=== PATIENT | female | born 1975 | race Caucasian/White ===

== ENCOUNTER 2016-08-01 15:45 | Emergency (ER) | payer MEDICAID, OTHER ==
[~2016-08-01] VITALS: Ht 167.6 cm; Wt 92.9 kg
[~2016-08-01 15:45] MED LIST: ALBU2.5V2 AEROSOL; FLUO40CA40 PO; PREN-92 PO
[2016-08-01 15:49] VITALS: Ht 167.6 cm; Wt 92.9 kg
--- OUTSIDE RECORDS SUMMARY | 2016-08-01 15:50 | XMS REPORT | Referral Summary ---
Author Author [facility] Organization [facility] Address Unknown Phone Unavailable Care Team Providers Care General Duty Nurse Name Role Phone No PCP, States Primary Care Physician [phone] Encounter VC Date(s): 05/28/15 - 05/28/15 [facility] [address] [place] [id number] Discharge Disposition: 01-Home or Self Care Attending Physician: Manuelito Nelson APRN Admitting Physician: Manuelito Nelson APRN Vital Signs Most recent to 1 oldest [Reference Range]: Temperature Tympanic 36.5 degC [36.6-38.1 degC] *LOW* (05/28/15 9:43 AM) Peripheral Pulse 96 bpm Rate [60-100 bpm] (05/28/15 9:43 AM) Respiratory Rate 18 br/min [14-20 br/min] (05/28/15 9:43 AM) Blood Pressure 112/74 mmHg [90-140/60-90 mmHg] (05/28/15 9:43 AM) SpO2 97 % (05/28/15 9:43 AM) Problem List Condition Effective Dates Status Health Status Informant Asthma(Confirmed) Active Macular Active degeneration(Confirm ed) Depression(Confirmed Active ) Irritable bowel Active syndrome(Confirmed) Migraine Active headaches(Confirmed) Obesity(Confirmed) Active patient Allergies, Adverse Reactions, Alerts No Known Medication Allergies Medications ibuprofen 200 mg oral tablet mg tabs, Oral, q6hr, 0 Refill(s) Start Date: 09/04/14 Status: Ordered Results No data available for this section Immunizations Vaccine Date Refusal Reason hepatitis A-hepatitis B vaccine 06/25/06 hepatitis A-hepatitis B vaccine 01/22/06 Procedures Procedure Date Related Diagnosis Body Site Lesion Excision Right Upper Eyelid 05/14/09 Cholecystectomy Social History Social History Type Response Smoking Status Never smoker Assessment and Plan No data available for this section
--- OUTSIDE RECORDS SUMMARY | 2016-08-01 15:50 | XMS REPORT | Referral Summary ---
Author Author [facility] Organization [facility] Address Unknown Phone Unavailable Care Team Providers Care Director Of Pupil Personnel Program Name Role Phone Dina Grier Primary Care Physician [phone] Encounter VC Date(s): 09/04/14 - 09/04/14 [facility] [address] [place] [id number]- Discharge Diagnosis: Well female exam with routine gynecological exam Discharge Diagnosis: Plantar fasciitis Discharge Disposition: 01-Home or Self Care Attending Physician: Lauren Smallwood APRN Admitting Physician: Lauren Smallwood APRN Vital Signs Most recent to 1 oldest [Reference Range]: Temperature Tympanic 37.1 degC [36.6-38.1 degC] (09/04/14 1:31 PM) Peripheral Pulse 88 bpm Rate [60-100 bpm] (09/04/14 1:31 PM) Respiratory Rate 16 br/min [14-20 br/min] (09/04/14 1:31 PM) Blood Pressure 110/74 mmHg [90-140/60-90 mmHg] (09/04/14 1:31 PM) Problem List Condition Effective Dates Status Health [...] Smoking Status Never smoker Assessment and Plan Extracted from: Title: Ambulatory Patient Education Author: Lauren Smallwood APRN Date : 09/04/14 Family Medicine Health Maintenance, Female A healthy lifestyle and preventative care can promote health and wellness. Maintain regular health, dental, and eye exams. Eat a healthy diet. Foods like vegetables, fruits, whole grains, low-fat dairy products, and lean protein foods contain the nutrients you need without too many calories. Decrease your intake of foods high in solid fats, added sugars, and salt. Get information about a proper diet from your caregiver, if necessary. Regular physical exercise is one of the most important things you can do for your health. Most adults should get at least 150 minutes of moderate- intensity exercise (any activity that increases your heart rate and causes you to sweat) each week. In addition, most adults need muscle-strengthening exercises on 2 or more days a week. Maintain a healthy weight. The body mass index (BMI) is a screening tool to identify possible weight problems. It provides an estimate of body fat based on height and weight. Your caregiver can help determine your BMI, and can help you achieve or maintain a healthy weight. For adults 20 years and older: A BMI below 18.5 is considered underweight. A BMI of 18.5 to 24.9 is normal. A BMI of 25 to 29.9 is considered overweight. A BMI of 30 and above is considered obese. Maintain normal blood lipids and cholesterol by exercising and minimizing your intake of saturated fat. Eat a balanced diet with plenty of fruits and vegetables. Blood tests for lipids and cholesterol should begin at age 20 and be repeated every 5 years. If your lipid or cholesterol levels are high, you are over 50, or you are a high risk for heart disease, you may need your cholesterol levels checked more frequently.Ongoing high lipid and cholesterol levels should be treated with medicines if diet and exercise are not effective. If you smoke, find out from your caregiver how to quit. If you do not use tobacco, do not start. Lung cancer screening is recommended for adults aged 5580 years who are at high risk for developing lung cancer because of a history of smoking. Yearly low-dose computed tomography (CT) is recommended for people who have at least a 71-alpk-smhs history of smoking and are a current smoker or have quit within the past 15 years. A pack year of smoking is smoking an average of 1 pack of cigarettes a day for 1 year (for example: 1 pack a day for 30 years or 2 packs a day for 15 years). Yearly screening should continue until the smoker has stopped smoking for at least 15 years. Yearly screening should also be stopped for people who develop a health problem that would prevent them from having lung cancer treatment. If you are , do not drink alcohol. If you are , be very cautious about drinking alcohol. If you are not and choose to drink alcohol, do not exceed 1 drink per day. One drink is considered to be 12 ounces (355 mL) of beer, 5 ounces (148 mL) of wine, or 1.5 ounces (44 mL) of liquor. Avoid use of street drugs. Do not share needles with anyone. Ask for help if you need support or instructions about stopping the use of drugs. High blood pressure causes heart disease and increases the risk of stroke. Blood pressure should be checked at least every 1 to 2 years. Ongoing high blood pressure should be treated with medicines, if weight loss and exercise are not effective. If you are 55 to 79 years old, ask your caregiver if you should take aspirin to prevent strokes. Diabetes screening involves taking a blood sample to check your fasting blood sugar level. This should be done once every 3 years, after age 45, if you are within normal weight and without risk factors for diabetes. Testing should be considered at a younger age or be carried out more frequently if you are overweight and have at least 1 risk factor for diabetes. Breast cancer screening is essential preventative care for women. You should practice "breast self-awareness." This means understanding the normal appearance and feel of your breasts and may include breast self-examination. Any changes detected, no matter how small, should be reported to a caregiver. Women in their 20s and 30s should have a clinical breast exam (CBE) by a caregiver as part of a regular health exam every 1 to 3 years. After age 40, women should have a CBE every year. Starting at age 40, women should consider having a mammogram (breast X-ray ) every year. Women who have a family history of breast cancer should talk to their caregiver about genetic screening. Women at a high risk of breast cancer should talk to their caregiver about having an MRI and a mammogram every year. Breast cancer gene (BRCA )-related cancer risk assessment is recommended for women who have family members with BRCA -related cancers. BRCA -related cancers include breast, ovarian, tubal, and peritoneal cancers. Having family members with these cancers may be associated with an increased risk for harmful changes (mutations ) in the breast cancer genes BRCA1 and BRCA2 . Results of the assessment will determine the need for genetic counseling and BRCA1 and BRCA2 testing. The Pap test is a screening test for cervical cancer. Women should have a Pap test starting at age 21. Between ages 21 and 29, Pap tests should be repeated every 2 years. Beginning at age 30, you should have a Pap test every 3 years as long as the past 3 Pap tests have been normal. If you had a hysterectomy for a problem that was not cancer or a condition that could lead to cancer, then you no longer need Pap tests. If you are between ages 65 and 70 , and you have had normal Pap tests going back 10 years, you no longer need Pap tests. If you have had past treatment for cervical cancer or a condition that could lead to cancer, you need Pap tests and screening for cancer for at least 20 years after your treatment. If Pap tests have been discontinued, risk factors (such as a new sexual partner) need to be reassessed to determine if screening should be resumed. Some women have medical problems that increase the chance of getting cervical cancer. In these cases, your caregiver may recommend more frequent screening and Pap tests. The human papillomavirus (HPV) test is an additional test that may be used for cervical cancer screening. The HPV test looks for the virus that can cause the cell changes on the cervix. The cells collected during the Pap test can be tested for HPV. The HPV test could be used to screen women aged 30 years and older, and should be used in women of any age who have unclear Pap test results. After the age of 30, women should have HPV testing at the same frequency as a Pap test. Colorectal cancer can be detected and often prevented. Most routine colorectal cancer screening begins at the age of 50 and continues through age 75. However, your caregiver may recommend screening at an earlier age if you have risk factors for colon cancer. On a yearly basis, your caregiver may provide home test kits to check for hidden blood in the stool. Use of a small camera at the end of a tube, to directly examine the colon (sigmoidoscopy or colonoscopy ), can detect the earliest forms of colorectal cancer. Talk to your caregiver about this at age 50, when routine screening begins. Direct examination of the colon should be repeated every 5 to 10 years through age 75, unless early forms of pre-cancerous polyps or small growths are found. Hepatitis C blood testing is recommended for all people born from 1945 through 1965 and any individual with known risks for hepatitis C. Practice safe sex. Use condoms and avoid high-risk sexual practices to reduce the spread of sexually transmitted infections (STIs). Sexually active women aged 25 and younger should be checked for Chlamydia, which is a common sexually transmitted infection. Older women with new or multiple partners should also be tested for Chlamydia. Testing for other STIs is recommended if you are sexually active and at increased risk. Osteoporosis is a disease in which the bones lose minerals and strength with aging. This can result in serious bone fractures. The risk of osteoporosis can be identified using a bone density scan. Women ages 65 and over and women at risk for fractures or osteoporosis should discuss screening with their caregivers. Ask your caregiver whether you should be taking a calcium supplement or vitamin D to reduce the rate of osteoporosis. Menopause can be associated with physical symptoms and risks. Hormone replacement therapy is available to decrease symptoms and risks. You should talk to your caregiver about whether hormone replacement therapy is right for you. Use sunscreen. Apply sunscreen liberally and repeatedly throughout the day. You should seek shade when your shadow is shorter than you. Protect yourself by wearing long sleeves, pants, a wide-brimmed hat, and sunglasses year round, whenever you are outdoors. Notify your caregiver of new moles or changes in moles, especially if there is a change in shape or color. Also notify your caregiver if a mole is larger than the size of a pencil eraser. Stay current with your immunizations. Document Released: 09/22/2011 Document Revised: 07/04/2013 Document Reviewed: Exit[employer] Patient Information 2013 [place] [facility]. No follow up information was provided. Extracted from: Title: Office Visit Note Author: Lauren Smallwood APRN Date: 09/04/14 Assessment/Plan 1.Plantar fasciitis ibuprofen as needed. ice, rest, elevate. Well female exam with routine gynecological exam pap today. yearly exams. Ordered: HPV High Risk, Thin Prep
--- OUTSIDE RECORDS SUMMARY | 2016-08-01 15:50 | XMS REPORT | Referral Summary ---
Author Author [facility] Organization [facility] Address Unknown Phone Unavailable Care Team Providers Care Log Brander Name Role Phone No PCP, States Primary Care Physician [phone] Encounter VC Date(s): 06/25/15 - 06/25/15 [facility] [address] [place] [id number] Discharge Diagnosis: Acute UTI Discharge Diagnosis: Acute URI Discharge Disposition: 01-Home or Self Care Attending Physician: Manuelito Nelson APRN Admitting Physician: Manuelito Nelson APRN Vital Signs Most recent to 1 oldest [Reference Range]: Temperature Oral 36.9 degC [35.8-37.3 degC] (06/25/15 1:44 PM) Peripheral Pulse 119 bpm Rate [60-100 bpm] *HI* (06/25/15 1:44 PM) Blood Pressure 120/80 mmHg [90-140/60-90 mmHg] (06/25/15 1:44 PM) SpO2 96 % (06/25/15 1:44 PM) Problem List Condition Effective Dates Status Health Status Informant Asthma(Confirmed) Active Macular Active degeneration(Confirm ed) Depression(Confirmed Active ) Irritable bowel Active syndrome(Confirmed) Migraine Active headaches(Confirmed) Obesity(Confirmed) Active patient Allergies, Adverse Reactions, Alerts No Known Medication Allergies Medications albuterol 90 mcg/inh inhalation powder 2 puffs, Inhalation, q4hr, # 1 inhalers, 0 Refill(s), Pharmacy: [id number] Start Date: 06/02/15 Status: Ordered Augmentin 875 mg-125 mg oral tablet 1 tabs, Oral, q12hr, X 10 days, # 20 tabs, 0 Refill(s), Pharmacy: [id number] Start Date: 06/25/15 Stop Date: 4/14/16 Status: Ordered ibuprofen 200 mg oral tablet mg tabs, Oral, q6hr, 0 Refill(s) Start Date: 09/04/14 Status: Ordered Results Urinalysis Most recent to 1 oldest [Reference Range]: UA Color Dk Yellow (06/25/15 2:40 PM) UA Appear Cloudy *ABN* (06/25/15 2:40 PM) UA pH [5.0-8.0] 5.5 (06/25/15 2:40 PM) UA Leuk Est Negative [Negative] (06/25/15 2:40 PM) UA Nitrite Negative [Negative] (06/25/15 2:40 PM) UA Protein Pos 1+ [Negative] *ABN* (06/25/15 2:40 PM) UA Glucose Negative [Negative] (06/25/15 2:40 PM) UA Ketones Pos 3+ 1 [Negative] *CRIT* (06/25/15 2:40 PM) UA Urobilinogen 0.2 mg/dL [<=1.0 mg/dL] (06/25/15 2:40 PM) UA Bili [Negative] Positive 2 *ABN* (06/25/15 2:40 PM) UA Blood [Negative] Negative (06/25/15 2:40 PM) UA Spec Grav >=1.030 [1.003-1.030] (06/25/15 2:40 PM) Type Clean Catch (06/25/15 2:40 PM) UA WBC [0-4] 2-4 (06/25/15 2:40 PM) UA RBC [0-2] 0-2 (06/25/15 2:40 PM) Epithelial Cells 20-50 *ABN* (06/25/15 2:40 PM) UA Bacteria Moderate *ABN* (06/25/15 2:40 PM) 1Result Comment: Critical Ketone rechecked and called to [facility] @ 7502 by pls. 2Result Comment: Unable to confirm positive Bilirubin by Ictotest due to national shortage of reagent. Immunizations Vaccine Date Refusal Reason hepatitis A-hepatitis B vaccine 06/25/06 hepatitis A-hepatitis B vaccine 01/22/06 Procedures Procedure Date Related Diagnosis Body Site Lesion Excision Right Upper Eyelid 05/14/09 Cholecystectomy Social History Social History Type Response Smoking Status Never smoker Assessment and Plan Extracted from: Title: Office Visit Note Author: NelsonManuelito Teresa PATEL Date: 06/25/15 Assessment/Plan 1.Acute URI Rapid strep and influenza performed in office which were negative at this time. Because of her past diagnosis of asthmaand her increased difficulty from a respiratory standpoint I think that it is important that we get her covered with an antibiotic. We will go ahead and get this into the pharmacy for her and she should expect that she will notice some difference in 72 hours in full resolution of symptoms within 7-10 days. If this is not sure she should come back in for reevaluation. 2.Acute UTI UA was completed in officeand was found to have several positives for a UTI. At this time I think we will just hope that the antibioticfor her acute URIwill also help to cover forher UTI. With the culture comes back we will find out if this is a good decision or not. Orders: amoxicillin-clavulanate, 1 tabs, Oral, q12hr, X 10 days, # 20 tabs, 0 Refill(s), Pharmacy: [id number]
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
--- NOTE | 2016-08-01 15:58 | NUR ---
PROVIDER DR CLEMENTE AT BEDSIDE FOR H&P
[2016-08-01] MEDS ORDERED: KETOROLAC 30mg/ml INJECTION IV ONE (16:00)
[2016-08-01] MEDS ORDERED: ONDANSETRON 4mg/2ml INJECTION IV PRN (16:00)
[2016-08-01] MEDS ORDERED: NORMAL SALINE 1,000 ML IV ONE (16:00)
[2016-08-01] MEDS ORDERED: IBUP-1724 PO (16:06)
[2016-08-01] MEDS ORDERED: ALBU6.7H INH (16:06)
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
[2016-08-01 16:29] LABS: BASOPHILS % (AUTO) 0.3 % (0-2); EOSINOPHILS # (AUTO) 0.2 T/MM3 (0-0.5); EOSINOPHILS % (AUTO) 2.1 % (0-4); HCT - HEMATOCRIT 41.1 % (36-46); IMMATURE GRANULOCYTE # (AUTO) 0.01 T/MM3 (0.00-0.03); IMMATURE GRANULOCYTE % (AUTO) 0.1 % (0.0-0.5); LYMPHOCYTES # (AUTO) 2.9 T/MM3 (1-4.8); LYMPHOCYTES % (AUTO) 41.3 % (23-45); MEAN CORPUSCULAR HGB 27.1 UUG (26-34); MEAN CORPUSCULAR HGB CONC(MCHC 31.6 GM/DL (31-37); MEAN CORPUSCULAR VOLUME 85.8 UM3 (80-100); MONOCYTES # (AUTO) 0.5 T/MM3 (0-0.8); MONOCYTES % (AUTO) 6.6 % (0-9.0); NEUTROPHILS #(AUTO)-ABSOLUTE 3.5 T/MM3 (1.8-7.7); NEUTROPHILS % (AUTO) 49.6 % (33-66); RED BLOOD COUNT 4.79 M/MM3 (4.00-5.20); WBC - WHITE BLOOD COUNT 7.1 T/MM3 (4.5-11.0)
--- NOTE | 2016-08-01 16:29 | NUR ---
CT PATIENT TO CT PER CART, STABLE.
[2016-08-01 16:37] LABS: ANION GAP 12 MEQ/L (5-15); BUN/CREATININE RATIO 17 RATIO (6-26); CALCIUM 9.5 MG/DL (8.4-10.2); CHLORIDE 108 MEQ/L (98-107); CO2 - CARBON DIOXIDE 25 MEQ/L (22-30); CREATININE 0.6 MG/DL (0.7-1.2); GLOMERULAR FILTRATION RATE 111; GLUCOSE 101 MG/DL (65-110); POTASSIUM 3.7 MEQ/L (3.6-5); SODIUM 145 MEQ/L (134-144)
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
[2016-08-01] MEDS ORDERED: CYCL-375 PO (17:23)
[2016-08-01 17:42] VITALS: BP 117/69; PULSE 79; RESP 16; TEMP 98.2; O2SAT 99
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
== END 2016-08-01 17:42 | disposition home or self-care (01) ==
LOC: ED 15:45
DX: S13.4XXA Sprain of ligaments of cervical spine, initial encounter (principal); S39.013A Strain of muscle, fascia and tendon of pelvis, initial encounter; G44.209 Tension-type headache, unspecified, not intractable; J32.9 Chronic sinusitis, unspecified; V49.40XA Driver injured in collision with unspecified motor vehicles in traffic accident, initial encounter; Y93.89 Activity, other specified; Y92.410 Unspecified street and highway as the place of occurrence of the external cause; Y99.8 Other external cause status
CPT/HCPCS: 70450; 72125; 80048; 84703; 85025; 96361; 96374; 96375; 99284; J1885; J2405; J7030; L0150